=== PATIENT | female | born 1985 | race Caucasian/White ===

== ENCOUNTER 2017-05-09 14:15 | Emergency (ER) | payer OTHER ==
[~2017-05-09] VITALS: Ht 162.6 cm; Wt 60.0 kg
[2017-05-09] MEDS ORDERED: DIPHENHYDRAMINE 50 MG/ML, 1ML ONE (15:00)
[2017-05-09] MEDS ORDERED: DIPHENHYDRAMINE 50 MG/ML, 1ML IVPush ONE (15:00)
[2017-05-09] MEDS ORDERED: PROCHLORPERAZINE 5 MG/ML, 2ML ONE (15:00)
[2017-05-09] MEDS ORDERED: SODIUM CHLORIDE FLUSH 10ML SYR IVF ONE (15:00)
[2017-05-09] MEDS ORDERED: PROCHLORPERAZINE 5 MG/ML, 2ML IVPush ONE (15:00)
[2017-05-09] MEDS ORDERED: SODIUM CHLORIDE 0.9% 1,000ML IVBOLUS ONE (15:00)
[2017-05-09 15:17] LABS: HEMATOCRIT 42.2 % (34.6-47.8); HEMOGLOBIN 14.4 g/dL (11.7-16.4); WHITE BLOOD COUNT 7.6 x10^3/uL (3.4-10)
[2017-05-09 15:27] LABS: BLOOD UREA NITROGEN 12 mg/dL (7-18)
[2017-05-09 16:56] LABS: HCG UR LOT HCG7030192
[2017-05-09 17:06] LABS: HCG UR OBC PASS
[2017-05-09] MEDS ORDERED: OMNIPAQUE 350 MG/ML, 100ML BOTTLE ONE (17:08)
[2017-05-09 17:53] VITALS: BP 124/81
== END 2017-05-09 17:55 | disposition home or self-care (01) ==
LOC: ED 16:07
DX: G43.109 Migraine with aura, not intractable, without status migrainosus (principal)
CPT/HCPCS: 36415; 70450; 70496; 70498; 80048; 81003; 81025; 82040; 85025; 93005; 96374; 96375; 99285; J0780; J1200; J7030; Q9967